=== PATIENT | female | born 1970 | race Caucasian/White ===

== ENCOUNTER 2024-02-05 08:19 | Day surgery (SDC) | payer OTHER ==
[2024-02-03 08:25] LABS: BASOPHILS # (AUTO) 0.03 K/uL (0.00-0.20); BASOPHILS % (AUTO) 0.4 % (0.0-5.0); EOSINOPHILS # (AUTO) 0.16 K/uL (0.00-0.70); EOSINOPHILS % (AUTO) 2.4 % (0.0-8.0); HEMATOCRIT 40.7 % (36-48); IMMATURE GRANULOCYTE ABSOLUTE 0.02 K/uL (0-1); MEAN CORPUSCULAR HEMOGLOBIN 30.2 pg (27.0-33.0); MEAN CORPUSCULAR HGB CONC 32.7 g/dL (32.0-36.0); MEAN CORPUSCULAR VOLUME 92.3 fL (79-99); MONOCYTES # (AUTO) 0.5 K/uL (0.1-1.0); NEUTROPHILS # (AUTO) 4.1 K/uL (1.8-7.7); NEUTROPHILS % (AUTO) 59.9 % (40.0-77.0); PLATELET COUNT (AUTO) 363 K/uL (130-400); RED BLOOD CELL COUNT(AUTO) 4.41 MIL/uL (4.00-5.50); RED CELL DISTRIBUTION WIDTH 13.1 % (11.0-15.5); WHITE BLOOD COUNT (AUTO) 6.8 K/uL (4.8-10.8)
[2024-02-03 08:44] LABS: CREATININE 0.9 mg/dL (0.5-1.0); POTASSIUM 3.9 mmol/L (3.5-5.1)
[2024-02-03 09:03] VITALS: BP 135/68; PULSE 60; RESP 18
[~2024-02-05] VITALS: Ht 160 cm; Wt 87.9 kg
[2024-02-05] VITALS (15 sets, daily range): BP systolic 113–138; BP diastolic 59–88; PULSE 68–88; RESP 12–18
[~2024-02-05 08:19] MED LIST: LEVO88CA4 PO; NORE5TAB7 PO; [UNRECOGNIZED DRUG - OTHER] PO
[2024-02-05] MEDS: LACTATED RINGERS 1000ML 1,000 ML IV ONE (09:14)
[2024-02-05] MEDS ORDERED: PROPOFOL 10 MG/ML 20ML VIAL IV ONE (09:48)
[2024-02-05] MEDS ORDERED: MIDAZOLAM HCL 1 MG/ML 2ML VIAL ONE (09:48)
[2024-02-05] MEDS ORDERED: LIDOCAINE HCL MPF 1% 5ML VIAL ONE (09:48)
[2024-02-05] MEDS ORDERED: FENTANYL CITRATE PF 50 MCG/1 ML 2ML VIAL ONE (09:49)
[2024-02-05] MEDS ORDERED: ONDANSETRON 4MG INJ ONE (11:22)
[2024-02-05] MEDS ORDERED: DEXAMETHASONE SOD PHOSPHATE 10MG/ML 1ML VIAL ONE (11:22)
[2024-02-05] MEDS ORDERED: KETOROLAC 30MG VIAL (30MG/ML) ONE (11:23)
== END 2024-02-05 13:40 | disposition home or self-care (01) ==
LOC: DAH 08:19
PROVIDERS: ATTEND Obstetrics & Gynecology
DX: N95.0 Postmenopausal bleeding (principal); N84.0 Polyp of corpus uteri; Z79.899 Other long term (current) drug therapy; Z98.51 Tubal ligation status; Z98.890 Other specified postprocedural states; Z98.891 History of uterine scar from previous surgery; Z82.49 Family history of ischemic heart disease and other diseases of the circulatory system; Z83.3 Family history of diabetes mellitus; Z82.0 Family history of epilepsy and other diseases of the nervous system; Z87.891 Personal history of nicotine dependence
CPT/HCPCS: 80048; 84703; 85025; 36415; 58558; 88305; A4663; J7120 ×2; A4351; A4355; J3010; J1100; J2250; J2704; J2405; J1885; J3490; A4215; A4223; A4222; A4221; A4600